=== PATIENT | female | born 2000 | race Two or more races ===

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

== ENCOUNTER 2018-09-27 14:24 | Emergency (ER) | payer MEDICAID ==
[2018-09-27 14:35] VITALS: BP 129/81
--- NOTE | 2018-09-27 15:05 | EDPHY ---
H & P Stated Complaint: bumps and irritation to lip for 1 month Time Seen by Provider: 09/27/18 14:45 HPI/ROS: Chief Complaint: Lip lesion HPI: 18-year-old woman presenting with waxing and waning lip lesions for the last month. Patient states starting the corner of her mouth and where she gets some cracking and ulceration. These have gone away but then spread across the top of her lip. She has been using Aquaphor high as a lip balm. Does not have a history of similar episodes in the past. Lesions tender the only on the outside of her lips. No history of STIs in the past. No fevers or chills. No swelling. Has not seen a primary care physician. ROS: 10 systems were reviewed and were negative except those elements noted in the HPI. PMH: Denies Social History: No smoking, no alcohol, no recreational drug use Family History: non-contributory Physical Exam: Gen: Awake, Alert, No Distress HEENT: Nose: no rhinorrhea Eyes: PERRLA, EOMI Mouth: Moist mucosa fine vesicular lesion in the right upper lip with mild erosion, no erythema, no swelling. No intraoral lesions Neck: Supple, no JVD, no lymphadenopathy Skin: no rash Neuro: CN II-XII intact, Sensation grossly intact, Strength 5/5 in bilateral upper and lower extremities - Personal History LMP (Females 10-55): 8-14 Days Ago - Medical/Surgical History Hx Asthma: No Hx Chronic Respiratory Disease: No Hx Diabetes: No Hx Cardiac Disease: No Hx Renal Disease: No Hx Cirrhosis: No Hx Alcoholism: No Hx HIV/AIDS: No Hx Splenectomy or Spleen Trauma: No Other PMH: DENIES - Social History Smoking Status: Never smoked Constitutional: Initial Vital Signs Temperature (C) 36.2 C 09/27/18 14:33 Heart Rate 80 09/27/18 14:33 Respiratory Rate 18 09/27/18 14:33 Blood Pressure 129/81 H 09/27/18 14:33 O2 Sat (%) 96 09/27/18 14:33 O2 Delivery Mode Room Air Allergies/Adverse Reactions: No Known Allergies Allergy (Verified 09/27/18 14:33) Home Medications: Medication Instructions Recorded NK [No Known Home Meds] 09/27/18 Medical Decision Making ED Course/Re-evaluation: 18-year-old female presenting with aphthous stomatitis verses HSV 1 lesion. I have sent a viral swab. Will hold off on antivirals until those come back. She will follow up with primary care physician to get those culture results and for further treatment. I have advised her to discontinue all topical medicines until she is seen by her primary care physician. Departure - Departure Disposition: Home, Routine, Self-Care Clinical Impression: Stomatitis Condition: Good Instructions: Canker Sores (ED) Additional Instructions: Follow up with primary care physician in 3-4 days for re-evaluation. They will be able to check your culture results. Discontinue all lip balms and lotions that you have been using until you follow up with primary care physician. Referrals: BEBE DELATORRE [Primary Care Provider] - As per Instructions
== END 2018-09-27 15:20 | disposition home or self-care (01) ==
LOC: CED 14:24
DX: K12.1 Other forms of stomatitis (principal)
CPT/HCPCS: 87529-90; 99283-ER